=== PATIENT | female | born 1985 | race Caucasian/White ===

== ENCOUNTER 2017-12-12 07:37 | Emergency (ER) | payer OTHER ==
[~2017-12-12] VITALS: Ht 160 cm; Wt 70.3 kg
[~2017-12-12 07:37] MED LIST: ALBUTEROL 3 ML3 ML INH; AMOXICILLIN875 M1 PO; IBUPROFEN800 M1 PO; LEVOFLOXACIN5 ML OU; PREDNISONE10 M2 PO; ROBITUSSIN W/CO10 ML PO; ZITHROMAX Z-PA250 M1 PO
[2017-12-12 07:40] VITALS: BP 143/88
[2017-12-12] MEDS ORDERED: IBUPROFEN800 M1 PO (08:18)
[2017-12-12] MEDS ORDERED: AMOXICILLIN875 M1 PO (08:18)
--- NOTE | 2017-12-12 08:18 | ED EAR COMPLAINT ---
History of Present Illness General Chief Complaint: Ear Complaints Stated Complaint: EAR INFECTION? Source: patient Exam Limitations: no limitations Vital Signs & Intake/Output Vital Signs & Intake/Output Vital Signs Date Time Temp Pulse Resp B/P B/P Pulse O2 O2 Flow FiO2 Mean Ox Delivery Rate 12/12 0740 98.1 83 16 143/88 96 Room Air Allergies Coded Allergies: metronidazole (From FLAGYL) (Intermediate, NAUSEA AND VOMITING 06/14/17) Reconcile Medications Amoxicillin 875 MG TABLET 1 TAB PO BID otitis media Ibuprofen 800 MG TABLET 1 TAB PO TID pain Triage Note: PT STATES SHE THINKS SHE HAS AN EAR INFECTION RIGHT SIDE,. Triage Nurses Notes Reviewed? yes Onset: Abrupt Duration: day(s): Timing: recent history Severity: mild, moderate No Modifying Factors: none : No Patient currently breastfeeds: No HPI: 32-year-old female comes into the emergency room with complaints of right ear pain. Symptoms going on for the last 3 days. Now radiating down to her jaw area into her head. Decreased hearing. Low-grade fever. Denies any cough or any other associated symptoms. Denies any trauma to her ear. Denies any prior history of ear infections. Comes in for further evaluation. (Rosas Ferrer) Past History Travel History Traveled to [place] past 21 day No Medical History Any Pertinent Medical History? 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 No (Rosas Ferrer) Review of Systems Review of Systems Constitutional: Reports: no symptoms. EENTM: Reports: see HPI. Respiratory: Reports: no symptoms. Cardiovascular: Reports: no symptoms. GI: Reports: no symptoms. Genitourinary: Reports: no symptoms. Musculoskeletal: Reports: no symptoms. Skin: Reports: no symptoms. Neurological/Psychological: Reports: no symptoms. Hematologic/Endocrine: Reports: no symptoms. Immunologic/Allergic: Reports: no symptoms. All Other Systems: Reviewed and Negative (Rosas Ferrer) Physical Exam Physical Exam General Appearance: well developed/nourished, mild distress Head: atraumatic Eyes: Bilateral: normal appearance. Ears: Right: Tympanic dull, Tympanic red. Nose: normal inspection Mouth/Throat: pharynx normal Neck: normal inspection Cardiovascular/Respiratory: no respiratory distress Back: normal inspection Neurologic/Psych: awake, alert, oriented x 3, normal mood/affect Skin: intact, normal color, warm/dry (Rosas Ferrer) Progress Differential Diagnoses I considered the following diagnoses in my evaluation of the patient: Otitis media, otitis externa, mastoiditis, foreign body, Plan of Care: 12/12/2017 8:35:34 AM Patient treated symptomatically for ear infection. Return if any other concerns. Understands and agrees a plan of care. Initial ED EKG: none (Rosas Ferrer) Departure Departure Disposition: HOME OR SELF CARE Condition: Stable Clinical Impression Primary Impression: Right otitis media Referrals: Bhumi BUSBY,Rogelio Mcbride (PCP/Family) Additional Instructions: Take amoxicillin and ibuprofen as prescribed. Follow-up with primary care doctor. Return if any concerns worsening symptoms. Please go over all results of today's visit with your primary care doctor. Contact your primary care doctor to let them know you were here in the emergency room. There may be nonspecific findings which may not be related to your visit today here in the emergency room but may require further evaluation and chronic monitoring by your primary care doctor. If you had a laceration today the chance of foreign body always remains. You should follow-up with your primary care doctor for recheck in 3-5 days for a wound check. If you had an x-ray done there is a chance that a fracture could have been missed on initial read and you should follow-up with your primary care doctor for repeat x-rays if symptoms persist. If your blood pressure was elevated here in the emergency room please have rechecked by [facility] primary care doctor within the next 48. If you were prescribed a narcotic here in the emergency room or any type of controlled substances you're not allowed to drive while taking this medication or operate any type of heavy machinery. Narcotics can make you feel lightheaded dizziness nausea and can cause constipation. You may need to apple picking supervisor a stool softener. Thank you for choosing [facility] emergency room. Please return to the emergency room immediately if you have any other concerns worsening of symptoms. Departure Forms: Customer Survey General Discharge Information Prescriptions: Current Visit Scripts Amoxicillin 1 TAB PO BID #20 TAB Ibuprofen 1 TAB PO TID #30 TAB (Rosas Ferrer) PA/RANCH MANAGER Co-Sign Statement Statement: ED Attending supervision documentation- [] I saw and evaluated the patient. I have also reviewed all the pertinent lab results and diagnostic results. I agree with the findings and the plan of care as documented in the PA's/RANCH MANAGER's documentation. [x] I have reviewed the ED Record and agree with the PA's/RANCH MANAGER's documentation. [] Additions or exceptions (if any) to the PAs/RANCH MANAGER's note and plan are summarized below: [] (Jose Martin Marquis DO)
== END 2017-12-12 08:26 ==
LOC: ERH 07:37
DX: H66.91 Otitis media, unspecified, right ear (principal)